=== PATIENT | male | born 1995 ===

== ENCOUNTER 2018-12-30 14:14 | Outpatient (CLI) | payer OTHER | END 2018-12-30 17:00 | disposition home or self-care (01) | LOC: SONOGRAMA 14:14 | DX: E29.1 Testicular hypofunction (principal) ==

== ENCOUNTER 2019-03-10 13:12 | Outpatient (CLI) | payer OTHER | END 2019-03-10 15:00 | disposition home or self-care (01) | LOC: LAB 13:12 | DX: E03.8 Other specified hypothyroidism (principal); N40.1 Benign prostatic hyperplasia with lower urinary tract symptoms; E55.9 Vitamin D deficiency, unspecified; R89.1 Abnormal level of hormones in specimens from other organs, systems and tissues; M15.8 Other polyosteoarthritis; M25.50 Pain in unspecified joint; M10.00 Idiopathic gout, unspecified site ==